=== PATIENT | female | born 1950 | race African-American/Black ===

== ENCOUNTER → 2018-06-27 | Outpatient (CLI) | payer MEDICARE ==
--- NOTE | 2018-06-27 13:32 | Diagnostic Imaging Report ---
EXAM: Thyroid Ultrasound INDICATION: Left side neck mass COMPARISON: None TECHNIQUE: Transverse and sagittal images were obtained of the thyroid gland. FINDINGS: Thyroid gland: Size: Right lobe 3.4 x 1.7 x 1.4 cm, Normal in size Left lobe 3.5 x 1.8 x 1.1 cm, Normal in size Isthmus 0.2 cm, Normal in size Appearance: Homogeneous echotexture without increased vascularity Masses/Nodules: 0.5 cm cyst in the inferior right thyroid lobe. 5.4 x 3.0 x 3.4 cm complex left parotid mass with blood flow. 5.3 x 2.1 x 2.2 cm complex right parotid mass Parathyroid: No focal parathyroid masses. IMPRESSION: 0.5 cm cyst in the inferior right thyroid lobe. 5.4 x 3.0 x 3.4 cm complex left parotid mass with blood flow. 5.3 x 2.1 x 2.2 cm complex right parotid mass Signed by: Dr. Marcial Hamilton M.D. on 06/27/2018 1:29 PM
--- NOTE | 2018-06-27 14:08 | Diagnostic Imaging Report ---
PROCEDURE:FINE NEEDLE ASPIRATION COMPARISON:Patients [facility], CT, OUTSIDE CT IMAGES, 05/19/2018, 14:53. Patients [facility], US, US THYROID, 06/27/2018, 10:27. INDICATIONS:Bilateral palpable parotid masses. FINDINGS:Ultrasound was utilized for guidance to obtain fine needle aspiration of a left inferior parotid mass. Local anesthesia with 1% Xylocaine was accomplished. A total of 7 FNA's utilizing 25 gauge needles was accomplished. Specimens were given to the Pathologist and Cytology Tech in attendance and deemed the specimens adequate. Several of the specimens were mixed with fluid and blood tinged fluid. Specimens for cellblock were also obtained. The patient tolerated the procedure well. CONCLUSION:Successful fine needle aspiration of a left parotid lesion. Judson Palacios D.O. Dictated by: Judson Palacios D.O. on 06/27/2018 at 14:17 Electronically approved by: Judson Palacios D.O. on 06/27/2018 at 14:17
--- NOTE | 2018-06-27 14:18 | Diagnostic Imaging Report ---
PROCEDURE:ULTRASOUND GUIDANCE FOR PROCEDURE COMPARISON: INDICATIONS:LEFT NECK MASS COMPARISON:Patients [facility], US, FINE NEEDLE ASPIRATION, 06/27/2018, 11:54. FINDINGS: Informed consent was obtained. Ultrasound was used to identify the previously described left parotid mass. Please see the full report associated with accession number [id number] for full details. CONCLUSION:Ultrasound guidance for FNA of a left parotid mass. Judson Palacios D.O. Dictated by: Judson Palacios D.O. on 06/27/2018 at 14:26 Electronically approved by: Judson Palacios D.O. on 06/27/2018 at 14:26
== END ==
LOC: US 10:04
PROVIDERS: ATTEND Otolaryngology
DX: R22.1 Localized swelling, mass and lump, neck (principal)
CPT/HCPCS: 10022; 76536; 76942; 88112; 88172; 88173; 88305; 88342

== ENCOUNTER → 2019-01-08 | Outpatient (CLI) | payer MEDICARE ==
--- NOTE | 2019-01-08 11:32 | Diagnostic Imaging Report ---
EXAM: Parotid Ultrasound INDICATION: Parotid mass. COMPARISON: Thyroid ultrasound 06/27/2018. TECHNIQUE: Transverse and sagittal images were obtained of the parotid glands bilaterally. FINDINGS: There is a 4.6 x 2.3 x 2.9 cm complex macrocystic mass with septations in the right parotid gland. The mass previously measured 5.3 x 2.1 x 2.2 cm. There is a 5.4 x 2.5 x 4.0 cm complex macrocystic mass with septations in the left parotid gland. The mass previously measured 5.4 x 3.0 x 3.4 cm. IMPRESSION: Complex bilateral macrocystic parotid masses as above. Signed by: Dr. Violet Callahan MD on 01/08/2019 11:29 AM
== END ==
LOC: US 10:29
PROVIDERS: ATTEND Otolaryngology
DX: R60.9 Edema, unspecified (principal)
CPT/HCPCS: 76536